=== PATIENT | female | born 1985 | race Two or more races ===

== ENCOUNTER 2022-11-14 09:01 | Emergency (ER) | payer MEDICARE ==
[~2022-11-14] VITALS: Ht 160 cm; Wt 59.0 kg
[2022-11-14] MEDS ORDERED: IBUPROFEN 600 MG TAB PO STA (09:26)
[2022-11-14] MEDS ORDERED: IBUPROFEN 600 MG TAB ONE (09:48)
[2022-11-14] MEDS ORDERED: IBUPROFEN600 MG PO (10:05)
== END 2022-11-14 10:45 | disposition home or self-care (01) ==
LOC: ER 09:06
DX: M25.532 Pain in left wrist (principal); M11.232 Other chondrocalcinosis, left wrist; M25.432 Effusion, left wrist
CPT/HCPCS: 99284